=== PATIENT | female | born 1990 | race Two or more races ===

== ENCOUNTER 2019-01-24 08:59 | Inpatient (IN) ==
[2019-01-24] MEDS ORDERED: OXYTOCIN 30 UNITS/500 ML BAG IV PRN ×2 (09:25→15:53)
[2019-01-24] MEDS ORDERED: BUPIVACAINE 0.25% 30 ML VIAL ONE (09:28)
[2019-01-24] MEDS ORDERED: ePHEDrine sulfate 50 MG/ML AMP ONE (09:28)
[2019-01-24] MEDS ORDERED: fentaNYL 2MCG/ML ROPIV 1.25MG/ML 100 ML BAG EPI ONE (09:29)
[2019-01-24] MEDS ORDERED: fentaNYL citrate 100 MCG/2 ML VIAL ONE (09:29)
[2019-01-24] MEDS: LACTATED RINGER'S 1,000 ML IV PRN ×2 (09:34→09:56)
--- NOTE | 2019-01-24 09:35 | Anesthesiology Consultation ---
Date of Service January 24, 2019 Assessment & Plan Chart Review Chart Review: Patient NOT seen in Pre Admission Testing and Acceptable Risk for Labor Epidural Consults Requested none ASA ASA2 Proposed Anesthesia Anesthesia Type: Labor Epidural Risk / Benefits Reviewed With: PT / POA / Parent / Guardian, Accepts Plan and Informed Consent Obtained History Height/Weight Height: 5 ft 4 in Weight: 75 kg Allergies Allergy/AdvReac Type Severity Reaction Status Date / Time No Known Allergies Allergy Unverified 01/22/19 15:52 Medications Home Medications Medication Instructions Recorded Confirmed Last Taken ferrous sulfate [iron] 325 mg PO DAILY 01/13/19 01/24/19 01/22/19 21:00 vit-iron fum-folic ac 1 tab PO DAILY 01/13/19 01/24/19 01/22/19 21:00 [ Vitamin] Active Medications Generic Name Dose Route Start Last Admin Trade Name Freq PRN Reason Stop Dose Admin Lactated Ringer's 1,000 mls @ 125 mls/hr 01/24/19 09:25 01/24/19 09:34 Lr IV 01/26/19 09:24 999 mls/hr .Q8H PRN Administration L&D Protocol Protocol NPO Date Last Intake of Fluids: 01/23/19 Time Last Intake of Fluids: 21:30 Date Last Intake of Solids: 01/23/19 Time Last Intake of Solids: 21:30 Past Medical History Medical History Anemia GERD (gastroesophageal reflux disease) Gestational diabetes DIET CONTROLLED PCOS (polycystic ovarian syndrome) Exercise / Class Metabolic Activity II 4-5 Yardwork/Stairs/Walk up hill Past Family History Family History Mother Family history of diabetes mellitus Past Surgical History Surgical History History of surgery MANIPULATION OF DISLOCATED JOINT W/ ANESTHESIA - ELBOW Past Anesthesia History No Hx of Anesthesia Complications and No Family Hx of Anesthesia Complications History of PONV No Hx of PONV and No Hx of Motion Sickness Social History Smoking Status: Never smoker Hx Alcohol Use: No alcohol intake frequency: holidays/special occasions only Hx Substance Use: No substance use type: does not use Physical Exam Vital Signs Last Vital Signs Pulse 66 01/24/19 09:08 BP 127/76 01/24/19 09:08 Constitutional + obese ENMT Mouth: + small oral opening; no dentition abnormality Thyromental Distance: < 3.5 Finger Breadths Mallampati Class: II Neck normal visual inspection and trachea midline; neck extension not limited Respiratory normal respiratory effort Auscultation: lungs clear to auscultation bilaterally Cardiovascular Rate/Rhythm: regular rate and regular rhythm Heart Sounds: no murmur Musculoskeletal Spine: lumbar spine normal to inspection; normal cervical ROM Neurologic moves all extremities Motor/Sensory: no sensory deficit Psychiatric Orientation: alert and oriented x 3
--- NOTE | 2019-01-24 09:39 | History & Physical Report ---
Date of Service January 24, 2019 Assessment & Plan (1) Active labor at term: 28yo G1 at 38.4 weeks GA. Active labor. Patient previously preferred a primary LTCS. After discussion of risks of primary LTCS at complete patient opted to proceed with . 1. Fetus: - Cat 1 2. Labor: Complete 3. GBS - 4. Pain: Epidural JM 5. A1gDM: BG once. If stable will D/c (2) Gestational diabetes: History of Present Illness Primary Care Provider: Zelalem Marcano 28yo at 38.4 weeks GA. Patient presents with active labor. No LOF, VB. Good FM. complicated by A1gDM. GBS negative Allergies Allergy/AdvReac Type Severity Reaction Status Date / Time No Known Allergies Allergy Unverified 01/22/19 15:52 Home Medications Home Medications Medication Instructions Recorded Confirmed Type ferrous sulfate [iron] 325 mg PO DAILY 01/13/19 01/24/19 History vit-iron fum-folic ac 1 tab PO DAILY 01/13/19 01/24/19 History [ Vitamin] Patient History Family History Mother Family history of diabetes mellitus Social History Preferred Language: Nigerien Communication Ability: Effective Beliefs That Will Affect Care: None marital status: Current Living Situation: Spouse Feels Safe at Home: Yes and No Is there a partner from a previous relationship who is making you feel unsafe now?: No Smoking Status: Never smoker Second Hand Exposure: No Hx Alcohol Use: No Hx Substance Use: No Physical Exam Genitourinary: OB Exam Abdomen: + vertex Manual OB Exam: + cervical dilation 10 cm, + cervical effacement 100% and + station 0 OB Exam Monitor Tracing: + external FHT monitor used and + category I Results & Data Vital Signs (Past 12 Hours) Vital Signs Pulse BP 01/24/19 09:08 66 127/76
[2019-01-24 09:51] LABS: Hemoglobin 12.4 g/dL (12.0-16.0); Mean Platelet Volume 9.5 fL (7.4-10.4); Platelet Count 274 K/uL (130-400); RDW Coefficient of Variation 14.6 % (11.5-14.5); RDW Standard Deviation 41.9 fL (36.4-46.3); Red Blood Count 4.43 M/uL (4.2-5.4); White Blood Count 17.16 K/uL (4.8-10.8)
[2019-01-24 09:52] LABS: Mean Corpuscular Hgb Conc 35.4 g/dL (32-36)
[2019-01-24] MEDS ORDERED: NALOXONE HCL 0.4 MG/1 ML VIAL/CARP IV PRN (10:39)
[2019-01-24] MEDS ORDERED: NALOXONE HCL 1 MG in SODIUM CHLORIDE 0.9% 1000ML 1,000 ML IV PRN (10:39)
[2019-01-24] MEDS ORDERED: ONDANSETRON INJ 2 MG/ML 2 ML VIAL IV PRN (10:39)
[2019-01-24] MEDS ORDERED: NALBUPHINE HCL INJ 10 MG/ML AMP IV PRN (10:39)
[2019-01-24] MEDS ORDERED: DiphenhydrAMINE HCL 50 MG/ML VIAL IV PRN (10:39)
[2019-01-24] MEDS ORDERED: PROMETHAZINE HCL 25 MG in SODIUM CHLORIDE 0.9% 50 ML IV PRN (10:39)
[2019-01-24] MEDS ORDERED: LACTATED RINGER'S 1,000 ML IV PRN (10:39)
[2019-01-24] MEDS ORDERED: ePHEDrine sulfate 50 MG/ML AMP IV PRN (10:39)
[2019-01-24] MEDS ORDERED: fentaNYL 2MCG/ML ROPIV 1.25MG/ML 100 ML BAG EPI PRN (10:39)
[2019-01-24] MEDS ORDERED: DIPHTHERIA/TETANUS/PERTUSSIS 0.5 ML SYR/VIAL IM ONE (15:53)
[2019-01-24] MEDS ORDERED: SUPERCREAM 0.870% 15 GM JAR EXT PRN (15:53)
[2019-01-24] MEDS ORDERED: HYDROCORTISONE ACETATE 25 MG SUPP PR PRN (15:53)
[2019-01-24] MEDS ORDERED: BENZOCAINE 20% AER SPR 82.5 GM CAN EXT PRN (15:53)
--- NOTE | 2019-01-24 16:34 | Anesthesia Procedure Note ---
Date of Service January 24, 2019 Anesthesia Post Epidural Note Vital Signs Vital Signs: Temp Pulse Resp BP Pulse Ox 36.9 C 100 H 20 108/56 L 88 L 01/24/19 15:00 01/24/19 16:19 01/24/19 13:20 01/24/19 16:19 01/24/19 15:18 Pain Intensity Bilateral Abdomen: Pain Intensity: 0 Notes Mental Status: alert / awake / arousable Nausea / Vomiting: adequately controlled Pain: adequately controlled Airway Patency, RR, SpO2: stable & adequate BP & HR: stable & adequate Hydration State: stable & adequate Neuraxial Anesthesia: was administered and sensory block is resolving Anesthetic Complications: no major complications apparent Epidural: Removed without complications and With tip intact
[2019-01-24 17:49] LABS: Base Excess Cord Venous Blood -5.3 mEq/L (-7.7-1.9); Cord Venous Blood HCO3 20 mmol/L (18.4-26.8); Cord Venous Blood PCO2 39 mmHg (30.4-57.2); Cord Venous Blood PO2 33 mmHg (14.1-43.3); Cord Venous Blood pH 7.33 (7.20-7.44); O2 Saturation Cord Venous Bld 69.6 % (<68)
--- NOTE | 2019-01-24 17:59 | Delivery Summary ---
DATE OF OPERATION: 01/24/2019 PROCEDURE: Normal spontaneous vaginal delivery with second degree perineal laceration repair. SURGEON: Rogers Ricardo MD. PREOPERATIVE DIAGNOSES: 1. Single intrauterine at term. 2. Active labor. 3. Gestational diabetes, diet controlled. POSTOPERATIVE DIAGNOSES: 1. Single intrauterine at term. 2. Active labor. 3. Gestational diabetes, diet controlled. 4. Delivered. ESTIMATED BLOOD LOSS: 250 mL. DRAINS: None. FLUIDS: Continuous lactated Ringer. URINE OUTPUT: Not measured. COMPLICATIONS: None. FINDINGS: A viable female with Apgars of 8 and 9 at one and five minutes respectively and weight pending. INDICATIONS: Ms. Dumont is a 28-year-old G1, P0, admitted at 38 weeks 4 days gestational age in active labor. Upon initial evaluation, the patient was found to be 10 cm dilated, 100% effaced, 0 station with intact membranes. The patient was noted to be jorge every 2-3 minutes. The patient had prior to presentation decided that she would like to proceed with a primary elective section for fear of pain from a vaginal delivery. We did discuss that the patient had already progressed to 10 cm dilated and further discussed the risk of proceeding with a primary when complete compared to the risks with having a vaginal delivery. After a thorough discussion and the fact that we could make the patient comfortable with an epidural, the patient did opt to proceed with vaginal delivery. An epidural was then placed. Upon reevaluation, the patient was found to be 10 cm dilated, 100% effaced, positive 1-2 station. The patient was allowed to labor down until she was +2-3 station, at which time she did feel the urge to push. The patient began to push and was noted to effectively push. DESCRIPTION OF PROCEDURE: The patient progressed to 10 cm dilated, 100% effaced, positive 2-3 station, and pushed over an intact perineum with epidural anesthesia and delivered a viable female infant with the weight and Apgars as noted above. Head of the delivered in RENETTA position, restituted to right transverse. No nuchal cord was noted. Body and shoulders quickly followed. The was noted to be vigorous soon after delivery. A 1 minute delayed cord clamping was initiated, after which the cord was double clamped and cut. The was noted to be in vigorous state on the maternal abdomen. The cord segment and cord blood were then obtained. Attention was then turned to delivery of the placenta, which was delivered intact with a 3-vessel cord. Upon inspection of the perineum, cervix, and vagina, there was noted to be a second degree perineal laceration, which was repaired with 3-0 Vicryl in a continuous running crown stitch. Inspection of the perineum, cervix, and vagina noted no additional lacerations and bleeding was minimal. Decision was made to end the case. Both mother and were stable in the immediate post-delivery. Needle, sponge and instrument counts were correct at the completion of the case. I attest to the content of the Intraoperative Record and any orders documented therein. Any exception s are noted below.
[2019-01-24] MEDS: IBUPROFEN 600 MG TAB PO PRN (18:00)
[2019-01-24] MEDS: DOCUSATE SODIUM 100 MG CAP PO SCH (20:37)
[2019-01-24] MEDS: ACETAMINOPHEN 325 MG TAB PO PRN (21:03)
[2019-01-25] MEDS: IBUPROFEN 600 MG TAB PO PRN ×7 (00:11→22:40)
[2019-01-25] MEDS: ACETAMINOPHEN 325 MG TAB PO PRN (04:12)
[2019-01-25 06:26] LABS: Hemoglobin 9.8 g/dL (12.0-16.0)
--- NOTE | 2019-01-25 07:46 | Obstetrical Progress Note ---
Date of Service January 25, 2019 Assessment & Plan (1) Status post vaginal delivery: PPD 1 Doing well. Continue routine care Subjective Ambulation: ambulating normally Voiding: no incontinence Passing Gas:: Yes Diet Tolerance:: regular diet Lochia:: Moderate Feeding Type:: breast feeding Physical Exam Vital Signs (Past 24 Hours) Last Vital Signs Temp 97.5 F L 01/25/19 04:15 Pulse 81 01/25/19 04:15 Resp 18 01/25/19 04:15 BP 107/72 01/25/19 04:15 Pulse Ox 88 L 01/24/19 15:18 Genitourinary OB Exam Abdomen: + fundal height Fundus: + firm and + relation to umbilicus (below); not tender and not boggy
[2019-01-25] MEDS: DOCUSATE SODIUM 100 MG CAP PO SCH ×2 (09:07→21:11)
[2019-01-25] MEDS: PRENATAL VITAMIN 1 TAB PO SCH (09:07)
[2019-01-25] MEDS: FERROUS SULFATE 325 MG TAB PO SCH (09:07)
[2019-01-25] MEDS ORDERED: BISACODYL 5 MG TABEC PO SCH (20:00)
[2019-01-26] MEDS: IBUPROFEN 600 MG TAB PO PRN ×5 (02:27→23:40)
--- NOTE | 2019-01-26 07:34 | Obstetrical Progress Note ---
Date of Service January 26, 2019 Assessment & Plan (1) Status post vaginal delivery: Patient is a 28 year old PPD 2 s/p -Vital signs bp 91/61 a bit hypotensive, she does seem to be hypotensive at baseline, advised her to make sure she is taking in lots of fluids especially while breast feeding during the warmer months. -T37.0 normothermic, -Hemoglobin is 9.8 on ppd1 down from 12.4 on admission. no si/sx of anemia. -Pt is doing clinically well -Continue to encourage ambulation as tolerated, Monitor and control pain with motrin prn, Continue diet as tolerated. -Continue to support and encourage breast feeding -Counseled patient on discharge instructions including Vaginal bleeding, fevers, followup, lifting restrictions, breast feeding, vitamins, and nothing in the vagina for 6 weeks. Pt was agreeable -Plan for d/c today Supervising Physician Co-Signing Physician Notes I have reviewed the resident's note and examined the patient myself, and agree with the note above. Subjective Pt sleeping in bed with baby this morning in no acute distress. Pt reports doing well last night, a little less sleep 2/2 to baby wanting to feed more often. Pt is concerned about having a bm, reports minimal gas, she is on stool softners. She is also concerned about pain and ripping her strichs while straining for a bowel movement. I counseled her that the perineum is a highly vascularized area and her wound is likely closed to healed already, the stitches are mainly to bring the skin edges together. I also advised her that should she have any concerns feel free to ask the nurses or have them contact the physician. Otherwise Patient is tolerating her diet, ambulating, passing gas and voiding, still no bm. Reports moderate lochia. Denies H/A, chest pain, palpitations and uti syx. Answered all questions, no concerns at present, pain is well controlled Physical Exam Physical Exam: Constitutional: WD/WN, vitals as above no acute distress Eyes: normal visual gimenez by confrontation Neck: normal visual inspection Respiratory: normal respiratory effort, lungs clear to auscultation Cardiovascular: RRR, no murmur, no edema Heart Sounds: normal S1 and normal S2 Extremities: no calf tenderness Gastrointestinal (Abdomen): Uterus firm and below the umbilicus Results & Data Vital Signs (Past 12 Hours) Vital Signs Temp Pulse Resp BP 01/25/19 23:20 36.9 C 88 18 91/61 L 01/25/19 20:00 36.8 C 93 H 20 95/67 L Medications Administered Current Inpatient Medications Acetaminophen (Tylenol) 650 mg PO Q6H PRN PRN Reason: Pain/MURPHY/Fever Stop: 02/23/19 15:52 Last Admin: 01/25/19 04:12 Dose: 650 mg Documented by: Benzocaine (Dermoplast Pain Relieving [place]) 1 appln EXT PRN PRN PRN Reason: Perineal Discomfort Stop: 02/23/19 15:52 Last Admin: 01/24/19 20:37 Dose: 82.5 appln Documented by: Bisacodyl (Dulcolax) 10 mg SD DAILY PRN PRN Reason: No BM on 2nd post- day Stop: 02/25/19 08:59 Cocaine HCl (Supercream 0.870%) 1 gm EXT BID PRN PRN Reason: Hemorrhoidal Inflammation Stop: 02/07/19 15:52 Last Admin: 01/24/19 20:36 Dose: 1 btl Documented by: Docusate Sodium (Colace) 100 mg PO BID [facility] Stop: 02/23/19 20:59 Last Admin: 01/25/19 21:11 Dose: 100 mg Documented by: Ferrous Sulfate (Feosol) 325 mg PO QAM [facility] Stop: 02/24/19 08:59 Last Admin: 01/25/19 09:07 Dose: 325 mg Documented by: Hydrocortisone (Anusol Hc) 25 mg SD BID PRN PRN Reason: Hemorrhoidal Inflammation Stop: 02/23/19 15:52 Lactated Ringer's (Lr) 1,000 mls @ 125 mls/hr IV .Q8H PRN; Protocol PRN Reason: L&D Protocol Stop: 01/26/19 09:24 Last Infusion: 01/24/19 15:33 Dose: Infused Documented by: Oxytocin (Pitocin) 30 units in 500 mls @ 333.333 mls/hr IV .Q1H30M PRN; Protocol PRN Reason: Bleeding Control Ibuprofen (Motrin) 600 mg PO Q4H PRN PRN Reason: Pain/MURPHY/Cramping/Fever Stop: 02/23/19 15:52 Last Admin: 01/26/19 06:39 Dose: 600 mg Documented by: Michael Multivit/Kinder Teacher/Iron/Folic Ac ( Vitamin) 1 tab PO QAM RAISA Stop: 02/24/19 08:59 Last Admin: 01/25/19 09:07 Dose: 1 tab Documented by: Resident Activity Tracking Resident Involvement: Resident Care Provided Care Provided: Adult Hospital Medicine
[2019-01-26] MEDS: DOCUSATE SODIUM 100 MG CAP PO SCH ×2 (07:57→20:51)
[2019-01-26] MEDS: PRENATAL VITAMIN 1 TAB PO SCH (07:57)
[2019-01-26] MEDS: FERROUS SULFATE 325 MG TAB PO SCH (07:57)
[2019-01-26] MEDS ORDERED: BISACODYL 10 MG SUPP PR PRN (09:00)
[2019-01-27] MEDS ORDERED: MEASLES, MUMPS & RUBELLA VIRUS VIAL SQ ONE (00:42)
[2019-01-27] MEDS: IBUPROFEN 600 MG TAB PO PRN ×3 (04:35→14:29)
--- NOTE | 2019-01-27 07:43 | Obstetrical Progress Note ---
Date of Service January 27, 2019 Assessment & Plan (1) Status post vaginal delivery: No appreciable hemorrhoid on nursing examination today. No indication for continued hospitalization. Patient has super cream to take home. instructions given. Follow-up in 6 weeks for check. Subjective Patient had been scheduled for discharge on 514. Patient states that she was having severe hemorrhoidal pain and could not be discharged. Patient states that she called her insurance company and states that she could stay. Physical Exam Genitourinary: : small hemorrhoid ( per nursing assessment) Results & Data Vital Signs (Past 12 Hours) Vital Signs Temp Pulse Resp BP 01/27/19 00:45 98.4 F 74 18 106/72
[2019-01-27] MEDS: DOCUSATE SODIUM 100 MG CAP PO SCH (08:52)
[2019-01-27] MEDS: PRENATAL VITAMIN 1 TAB PO SCH (08:53)
[2019-01-27] MEDS: FERROUS SULFATE 325 MG TAB PO SCH (08:53)
== END 2019-01-27 15:35 | disposition home or self-care (01) | DRG 806 ==
LOC: OPB 08:59 → 4S1 09:00 → 4S2 20:04